=== PATIENT | female | born 1995 | race American Indian/Alaskan Native ===

== ENCOUNTER 2017-04-25 17:46 | Emergency (ER) | payer OTHER ==
[2017-04-25 17:58] VITALS: BP 109/68
--- NOTE | 2017-04-25 18:26 | Emergency Department Report ---
ED General Adult HPI - General Chief complaint: Animal Bite Stated complaint: LEFT ARM SPIDER BITE Time Seen by Provider: 04/25/17 18:06 Source: patient Mode of arrival: Ambulatory Limitations: No Limitations - History of Present Illness Initial comments: Patient comes into the ER today with complaints of a lesion noted to her left anterior humerus area for the past 5 days. Patient denies any known injury. Patient states that she woke up Saturday and noticed a red spot and that it has been getting bigger and more swollen ever since. Patient thinks that may be a spider bite her in her sleep. Any fever, lymph node swelling, shortness of breath, throat closing. Patient states that she has been putting alcohol on it as well as cleaning it with soap and water. - Related Data Previous Rx's Medication Instructions Recorded Last Taken Type Amoxicillin/K Clav Tab [Augmentin 1 tab PO Q12HR #20 tab 04/25/17 Unknown Rx 875 mg] Fluconazole [Diflucan TAB] 150 mg PO Q72HR PRN #4 tablet 04/25/17 Unknown Rx Mupirocin [Bactroban 2%] 1 applic TP BID #1 tube 04/25/17 Unknown Rx predniSONE [Deltasone] 40 mg PO QDAY #10 tab 04/25/17 Unknown Rx Allergies Allergy/AdvReac Type Severity Reaction Status Date / Time No Known Allergies Allergy Verified 04/25/17 17:49 ED Review of Systems ROS: Stated complaint: LEFT ARM SPIDER BITE Other details as noted in HPI Constitutional: denies: chills, fever Eyes: denies: eye pain, eye discharge, vision change ENT: denies: ear pain, throat pain Respiratory: denies: cough, shortness of breath, wheezing Cardiovascular: denies: chest pain, palpitations Endocrine: no symptoms reported Gastrointestinal: denies: abdominal pain, nausea, diarrhea Genitourinary: denies: urgency, dysuria, discharge Musculoskeletal: denies: back pain, joint swelling, arthralgia Skin: lesions (left anterior midline upper arm). 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 - Social History Smoking Status: Never Smoker Substance Use Type: Alcohol - Medications Home Medications: Home Medications Medication Instructions Recorded Confirmed Last Taken Type Amoxicillin/K Clav Tab [Augmentin 1 tab PO Q12HR #20 tab 04/25/17 Unknown Rx 875 mg] Fluconazole [Diflucan TAB] 150 mg PO Q72HR PRN #4 tablet 04/25/17 Unknown Rx Mupirocin [Bactroban 2%] 1 applic TP BID #1 tube 04/25/17 Unknown Rx predniSONE [Deltasone] 40 mg PO QDAY #10 tab 04/25/17 Unknown Rx ED Physical Exam - General Limitations: No Limitations General appearance: alert, in no apparent distress - Head Head exam: Present: atraumatic, normocephalic - Eye Eye exam: Present: normal appearance - ENT ENT exam: Present: normal exam, normal orophraynx, mucous membranes moist, normal external ear exam - Neck Neck exam: Present: normal inspection, full ROM. Absent: tenderness, lymphadenopathy, thyromegaly - Respiratory Respiratory exam: Present: normal lung sounds bilaterally. Absent: respiratory distress, rales, rhonchi, decreased breath sounds - Cardiovascular Cardiovascular Exam: Present: regular rate, normal rhythm. Absent: systolic murmur, diastolic murmur, rubs, gallop - GI/Abdominal GI/Abdominal exam: Present: soft, normal bowel sounds. Absent: tenderness - Extremities Exam Extremities exam: Present: normal inspection - Back Exam Back exam: Present: normal inspection - Neurological Exam Neurological exam: Present: alert, oriented X3 - Psychiatric Psychiatric exam: Present: normal affect, normal mood - Skin Skin exam: Present: warm, dry, intact, normal color, erythema (left anterior middle upper arm with red, elevated, tender, non-indurated lesion with early ulcerative appearance noted centrally to the lesion.). Absent: rash ED Course Vital Signs 04/25/17 17:53 Temperature 98.2 F Pulse Rate 78 Respiratory 17 Rate Blood Pressure 109/68 O2 Sat by Pulse 100 Oximetry ED Medical Decision Making - Medical Decision Making Patient is nontoxic and hemodynamically stable. I advised patient that there is no way to say for sure as to what potentially bit her but I agree with her in that it does appear that some sort of insect has bitten her. I believe she is having some reaction and that the lesion appears to be getting infected. I will start patient on some antibiotics accordingly as well as topical Bactroban ointment. Patient states that she does get yeast infections from antibiotics frequently and I will prescribe her a course of Diflucan for anticipated [place] infection. Patient is stable for discharge in and is agreement with treatment plan. Critical care attestation.: If time is entered above; I have spent that time in minutes in the direct care of this critically ill patient, excluding procedure time. ED Disposition Clinical Impression: Insect bite of left upper arm with infection Qualifiers: Encounter type: initial encounter Qualified Code(s): S40.862A - Insect bite ( nonvenomous) of left upper arm, initial encounter; L08.9 - Local infection of the skin and subcutaneous tissue, unspecified; W57.XXXA - Bitten or stung by nonvenomous insect and other nonvenomous arthropods, initial encounter Disposition: DISCHARGED TO HOME OR SELFCARE Is pt being admited?: No Does the pt Need Aspirin: No Condition: Good Instructions: Insect Bite or Sting (ED) Prescriptions: Amoxicillin/K Clav Tab [Augmentin 875 mg] 1 tab PO Q12HR #20 tab Mupirocin [Bactroban 2%] 1 applic TP BID #1 tube predniSONE [Deltasone] 40 mg PO QDAY #10 tab Fluconazole [Diflucan TAB] 150 mg PO Q72HR PRN #4 tablet PRN Reason: Vaginal Irritation Referrals: PRIMARY CARE, [Primary Care Provider] - 3-5 Days Time of Disposition: 18:30
== END 2017-04-25 18:51 | disposition home or self-care (01) ==
LOC: ED 17:46
DX: S40.862A Insect bite (nonvenomous) of left upper arm, initial encounter (principal); K21.9 Gastro-esophageal reflux disease without esophagitis; J45.909 Unspecified asthma, uncomplicated; W57.XXXA Bitten or stung by nonvenomous insect and other nonvenomous arthropods, initial encounter; Y93.89 Activity, other specified; Y92.89 Other specified places as the place of occurrence of the external cause; Y99.8 Other external cause status
CPT/HCPCS: 99282

== ENCOUNTER 2017-05-27 17:12 | Emergency (ER) | payer SELFPAY ==
[2017-05-27 17:37] VITALS: BP 116/69
--- NOTE | 2017-05-27 17:41 | Emergency Department Report ---
ED Rash HPI - HPI Chief Complaint: Skin Rash Stated Complaint: POSS BED BUGS Time Seen by Provider: 05/27/17 17:39 Duration: 2 Days Location: Other (l arm known exposure to bedbugs) Rash Symptoms: Yes Itching, No Facial Swelling, No Tongue/Oral Swelling, No Breathing Difficulties, No Choking Sensation, No Wheezing/Dyspnea, No Peeling, No Blistering, No Fever, No Lightheaded, No Malaise, No Myalgias Severity: mild ED Review of Systems ROS: Stated complaint: POSS BED BUGS Other details as noted in HPI Comment: All other systems reviewed and negative Constitutional: no symptoms reported, see HPI Eyes: as per HPI ENT: as per HPI Respiratory: no symptoms reported, see HPI Cardiovascular: as per HPI Endocrine: no symptoms reported, see HPI Gastrointestinal: as per HPI, abdominal pain Genitourinary: as per HPI, urgency Musculoskeletal: as per HPI Skin: as per HPI, rash Neurological: as per HPI Psychiatric: as per HPI Hematological/Lymphatic: as per HPI ED Past Medical Hx - Past Medical History Previous Medical History?: Yes Hx Hypertension: No Hx Congestive Heart Failure: No Hx Diabetes: No Hx Deep Vein Thrombosis: No Hx GERD: Yes Hx Renal Disease: No Hx Sickle Cell Disease: No Hx Seizures: No Hx Asthma: Yes (LAST IN 2011) Hx COPD: No Hx HIV: No Additional medical history: anemia, scoliosis - Surgical History Past Surgical History?: Yes Additional Surgical History: 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 05/27/17 Unknown Rx Rash Exam - Exam General: Vital signs noted. No distress. Alert and acting appropriately. HEENT: No Periorbital Edema, No Conjuctival Injection, No Chemosis, No Perioral Edema, No Tongue Edema, No Uvular Edema, No Compromised Airway, No Drooling Lungs: No Good Air Exchange, No Wheezes, No Ronchi, No Stridor, No Cough, No Labored Respirations, No Retractions, No Use of Accessory Muscles, No Other Abnormal Lung Sounds Heart: Yes Regular, No Murmur Skin: Yes Other (bed bug bites [place]; known exposure), No Urticarial Rash, No Maculopapular Rash, No Morbilliform rash, No Bulla(e), No Excoriations, No Weeping, No Tenderness, No Erythema, No Edema, No Encrustations Other: Positive: Abdomen Normal, Neurologic Normal, Musculoskeletal Normal ED Course Vital Signs 05/27/17 17:33 Temperature 98.4 F Pulse Rate 85 Respiratory 16 Rate Blood Pressure 116/69 O2 Sat by Pulse 98 Oximetry - Reevaluation(s) Reevaluation #1: 05/27/17 17:49 known exposure to bedbugs left arm vss no fever dc home w dc poc ED Medical Decision Making - Medical Decision Making known exposure to bedbugs here w son her bf kids have them Critical care attestation.: If time is entered above; I have spent that time in minutes in the direct care of this critically ill patient, excluding procedure time. ED Disposition Clinical Impression: Bed bug bite Disposition: DC- TO HOME OR SELFCARE Is pt being admited?: No Does the pt Need Aspirin: No Condition: Stable Instructions: Insect Bite or Sting (ED), Scabies (ED) Additional Instructions: clean home monitor child clean linen med as ordered follow up pcp if needed benadryl for itching Prescriptions: Permethrin [Elimite] 60 gm TP ONCE #1 cream..g. Time of Disposition: 17:49
== END 2017-05-27 18:16 | disposition home or self-care (01) ==
LOC: ED 17:12
DX: S40.862A Insect bite (nonvenomous) of left upper arm, initial encounter (principal); K21.9 Gastro-esophageal reflux disease without esophagitis; J45.909 Unspecified asthma, uncomplicated; W57.XXXA Bitten or stung by nonvenomous insect and other nonvenomous arthropods, initial encounter; Y93.89 Activity, other specified; Y92.89 Other specified places as the place of occurrence of the external cause; Y99.8 Other external cause status
CPT/HCPCS: 99282

== ENCOUNTER 2017-06-24 18:56 | Emergency (ER) | payer OTHER ==
[2017-06-24 19:22] VITALS: BP 119/65
[2017-06-24 19:43] LABS: Basophils % (Auto) 0.4 % (0.0-1.8); Eosinophils % (Auto) 3.6 % (0.0-4.3); Hematocrit 36.9 % (30.3-42.9); Hemoglobin 12.2 gm/dl (10.1-14.3); Mean Corpuscular HGB Conc 33 % (30-34); Mean Corpuscular Hemoglobin 28 pg (28-32); Mean Corpuscular Volume 85 fl (79-97); Platelet Count 294 K/mm3 (140-440); Red Blood Count 4.36 M/mm3 (3.65-5.03); Red Cell Distribution Width 14.7 % (13.2-15.2); White Blood Count 6.6 K/mm3 (4.5-11.0)
[2017-06-24 19:59] LABS: Alanine Aminotransferase 7 units/L (7-56); Albumin 4.3 g/dL (3.9-5); Albumin/Globulin Ratio 1.5 %; Alkaline Phosphatase 44 units/L (35-129); BUN/Creatinine Ratio 13.75; Blood Urea Nitrogen 11 mg/dL (7-17); Calcium 9.1 mg/dL (8.4-10.2); Carbon Dioxide 28 mmol/L (22-30); Glucose 72 mg/dL (65-100); Lipase 25 units/L (13-60); Total Protein 7.2 g/dL (6.3-8.2)
[2017-06-24 20:00] LABS: Anion Gap 15 mmol/L; Chloride 103.7 mmol/L (98-107); Potassium 4.1 mmol/L (3.6-5.0); Sodium 143 mmol/L (137-145)
[2017-06-24 20:03] LABS: Erythrocyte Sedimentation Rate 25 mm/Hr (0-20)
[2017-06-24 21:06] LABS: Basophils % (Auto) 0.3 % (0.0-1.8); Eosinophils % (Auto) 3.7 % (0.0-4.3); Hematocrit 36.1 % (30.3-42.9); Hemoglobin 12.2 gm/dl (10.1-14.3); Mean Corpuscular HGB Conc 34 % (30-34); Mean Corpuscular Hemoglobin 29 pg (28-32); Mean Corpuscular Volume 85 fl (79-97); Platelet Count 309 K/mm3 (140-440); Red Blood Count 4.23 M/mm3 (3.65-5.03); Red Cell Distribution Width 14.8 % (13.2-15.2); White Blood Count 6.6 K/mm3 (4.5-11.0)
[2017-06-24 21:43] LABS: Bacteria,Urine 2+ /HPF (Negative); Bilirubin,Urine NEG (Negative); Blood,Urine LG (Negative); Ketones,Urine NEG (Negative); Leukocyte Esterase,Urine TR (Negative); Mucus,Urine 3+ /HPF; Nitrite,Urine NEG (Negative); Urobilinogen,Urine < 2.0 mg/dL (<2.0)
[2017-06-24 21:45] LABS: RBC,Urine > 182.0 /HPF (0.0-6.0)
== END 2017-06-25 02:23 | disposition left against medical advice (07) ==
LOC: ED 18:56
DX: Z53.21 Procedure and treatment not carried out due to patient leaving prior to being seen by health care provider (principal)
CPT/HCPCS: 36415; 80053; 81001; 83690; 84703; 85025; 85652; 86850; 86900; 86901